=== PATIENT | male | born 1970 | race Caucasian/White ===

== ENCOUNTER → 2019-11-03 | Outpatient (CLI) | payer OTHER ==
--- NOTE | 2019-11-06 10:25 | MR ---
EXAMINATION TYPE: MR knee RT wo con DATE OF EXAM: 11/03/2019 COMPARISON: None HISTORY: right knee pain TECHNIQUE: Multiplanar, multisequence imaging of the right knee is performed without IV contrast. FINDINGS: There is a 1 x 1 x 4.8 cm popliteal fossa cyst small amount of fluid is seen in the suprapa tellar bursa. Fibrillation patellar cartilage. Joint space appears be fairly well preserved with no e rosive changes. Patellar and quadriceps tendons intact. Anterior cruciate, posterior cruciate, medial collateral, lateral collateral ligaments all appear int act. There is grade 3 abnormal signal involving the posterior horn and body of the medial meniscus compati ble with a tear. Lateral meniscus intact. There is grade II chondromalacia involving the articular ernst rface of the medial compartment of the femur. No marrow edema or contusion. No diagnostic evidence of osteonecrosis. IMPRESSION: 1. Posterior horn and body medial meniscal tear. 2. Fibrillation and chondromalacia patellar cartilage 3. 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 4. No evidence of ligamentous tear.
== END | disposition home or self-care (01) ==
LOC: RADMRIMAIN 15:13
PROVIDERS: ATTEND Family Medicine
DX: S83.241A Other tear of medial meniscus, current injury, right knee, initial encounter (principal); M22.41 Chondromalacia patellae, right knee; M94.261 Chondromalacia, right knee; X58.XXXA Exposure to other specified factors, initial encounter

== ENCOUNTER → 2024-10-09 | Outpatient (CLI) | payer BC ==
[2024-10-09 09:54] LABS: Partial Thromboplastin Time 23.8 sec (22.0-30.0)
[2024-10-09 14:57] LABS: HCT 44.6 % (39.6-50.0); MCH 31.2 pg (27.0-32.0); MCHC 33.6 g/dL (32.0-37.0); MCV 92.7 FL (80.0-97.0); Mean Platelet Volume 8.6 FL (9.5-12.2); NRBC Per 100 WBC 0 X 10*3/uL (0.00-0.01); Platelet Count 277 X 10*3/uL (140-440); RBC 4.81 X 10*6/uL (4.40-5.60); RDW 12.5 % (11.5-14.5); WBC 6.57 X 10*3/uL (4.50-10.00)
[2024-10-09 15:02] LABS: BUN/Creat Ratio 27.12 Ratio (12.00-20.00); Blood Urea Nitrogen 21.7 mg/dL (9.0-27.0); Glucose 102 mg/dL (70-110)
[2024-10-09 15:03] LABS: ALT 44 U/L (10-49); AST 26 U/L (14-35); Albumin 4.7 g/dL (3.8-4.9); Albumin/Globulin Ratio 2.24 Ratio (1.60-3.17); Alkaline Phosphatase 71 U/L (41-126); Calcium 9.7 mg/dL (8.7-10.3); Carbon Dioxide 21.9 mmol/L (21.6-31.8); Chloride 105 mmol/L (96-109); Globulin 2.1 g/dL (1.6-3.3); Potassium 4.6 mmol/L (3.5-5.5); Sodium 138 mmol/L (135-145); Total Bilirubin 0.4 mg/dL (0.3-1.2); Total Protein 6.8 g/dL (6.2-8.2)
[2024-10-09 15:06] LABS: Prothrombin Time 10.9 sec (10.0-12.5)
== END | disposition home or self-care (01) ==
LOC: LABPAT 09:10
PROVIDERS: ATTEND Orthopaedic Surgery
DX: Z01.818 Encounter for other preprocedural examination (principal); Z22.322 Carrier or suspected carrier of Methicillin resistant Staphylococcus aureus; M16.12 Unilateral primary osteoarthritis, left hip
CPT/HCPCS: 36415; 80053; 83036; 85027; 85610; 85730; 86850; 86900; 86901; 87070

== ENCOUNTER 2024-10-20 05:37 | Day surgery (SDC) | payer BC, OTHER ==
[2024-10-18 13:09] VITALS: BMI 37.1
[2024-10-20] MEDS ORDERED: TRANEXAMIC 1,000 MG/100ML-NACL 1,000 MG in SALINE 1 100ML.BAG IV PRN (06:00)
[2024-10-20] MEDS ORDERED: TRANEXAMIC 1,000 MG/100ML-NACL 1,000 MG in SALINE 1 100ML.BAG IVPB PRN (06:00)
[2024-10-20] MEDS: ACETAMINOPHEN TAB 500 MG TAB PO PRN (06:32)
[2024-10-20] MEDS: oxyCODONE ER 10 MG TAB.ER.12H PO PRN (06:32)
[2024-10-20] MEDS: DOCUSATE 100 MG CAP PO PRN (06:32)
[2024-10-20] MEDS: ONDANSETRON 4 MG/2 ML VIAL IVP PRN (06:36)
[2024-10-20] MEDS: DEXAMETHASONE SOD PHOSPHATE 10 MG/ML 1 ML VIAL IV PRN (06:37)
[2024-10-20] MEDS: FAMOTIDINE 20 MG/2 ML VIAL IVP PRN (06:37)
[2024-10-20] MEDS: KETOROLAC 15 MG/ML 1 ML VIAL IVP PRN (06:37)
[2024-10-20] MEDS: fentaNYL (PF) 50 MCG/ML 2 ML AMP IVP PRN (06:47)
[2024-10-20] MEDS: MIDAZOLAM 2 MG/2 ML VIAL IV ONE (06:47)
[2024-10-20] MEDS ORDERED: PROPOFOL 10 MG/ML 20 ML VIAL IV ONE (06:54)
[2024-10-20] MEDS ORDERED: GLYCOPYRROLATE 0.2 MG/ML 2 ML VIAL ONE (06:54)
[2024-10-20] MEDS ORDERED: DEXAMETHASONE SOD PHOSPHATE 4 MG/ML 1 ML VIAL ONE (06:54)
[2024-10-20] MEDS ORDERED: HYDROmorphone (PF) 1 MG/ML ONE (06:54)
[2024-10-20] MEDS ORDERED: NEOSTIGMINE 1 MG/ML 10 ML VIAL ONE (06:54)
[2024-10-20] MEDS ORDERED: ROCURONIUM 10 MG/ML (5 ML VIAL) IV ONE (06:54)
[2024-10-20] MEDS ORDERED: SUCCINYLCHOLINE CHLORIDE 200 MG/10 ML VIAL IV ONE (06:54)
[2024-10-20] MEDS ORDERED: ROPIVACAINE 5 MG/ML 30 ML VIAL ONE (06:54)
[2024-10-20] MEDS ORDERED: TRANEXAMIC 1,000 MG/100ML-NACL PREMIX BAG ONE (06:54)
[2024-10-20] MEDS ORDERED: fentaNYL (PF) 50 MCG/ML 2 ML AMP ONE (06:54)
[2024-10-20] MEDS ORDERED: LIDOCAINE 1% INJ 10MG/ML (20 ML MDV) ONE (06:54)
[2024-10-20] MEDS: IV FLUID CONTINUATION 1,000 ML IV ONE (06:55)
--- NOTE | 2024-10-20 07:26 | P.ANPRN ---
Procedure Note - Anesthesia - Nerve Block Performed Left Morteza Single Time Out Performed: Yes Date of Procedure: 10/20/24 Procedure Start Time: 06:47 Procedure Stop Time: 06:53 Location of Patient: PreOp Indication: Acute Post-Operative Pain, Requested by Surgeon Sedation Type: Sedate with meaningful contact maintained Preparation: Sterile Prep Position: Supine Needle Types: Pajunk Needle Gauge: 21 Ultrasound used to visualize needle placement: Yes Ultrasound used to observe medication spread: Yes Injectate: 0.5% Ropivacaine (see comment for volume) (30 ml + 4 mg Dexamethas one) Blood Aspirated: No Pain Paresthesia on Injection Noted: No Resistance on Injection: Normal Image Stored and Saved: Yes Events: Uneventful and Well Tolerated
[2024-10-20] MEDS: ROPIVACAINE/EPI/CLONIDINE/KET 50 ML SYRINGE MISCELLANE PRN (07:28)
--- NOTE | 2024-10-20 08:42 | P.OP ---
Date of Procedure: 10/20/24 Preoperative Diagnosis: Left hip osteoarthritis Postoperative Diagnosis: Same Procedure(s) Performed: Left direct anterior total hip arthroplasty Implants: 1. Eric Trident II Acetabular Cup, Size #56 2. [place] Insignia Size #5 Femoral Stem, High Offset 3. Biolox delta femoral head, 36 mm, - 2.5 mm neck Anesthesia: GETA, regional Surgeon: Ramses Arriaga Medical Technician #1: Al Garza Estimated Blood Loss (ml): 300 IV fluids (ml): 800 Pathology: none sent Condition: stable Disposition: PACU Indications for Procedure: The patient is a very pleasant 54 year old male who has a long history of left hip and groin pain. His presenting complaints and physical exam was consistent with hip arthritis. His xrays showed arthritic changes. He was initially managed non-surgically, but had continued pain. We discussed an image guided injection versus a total hip replacement and the patient and his requested proceeding with surgery. I had a long discussion with the patient in the office on the potential risks and complications of an elective total hip replacement through a direct anterior approach. Risks discussed include, but are certainly not limited to, risks from anesthesia, superficial infection requiring local wound care or antibiotics, deep hill-prosthetic joint infection and the treatment required to eradicate infection, intraoperative fracture, postoperative periprosthetic fracture, damage to local blood vessels or nerves particularly the lateral femoral cutaneous nerve, delayed wound healing requiring local wound care or possibly surgical debridement, hip dislocation, leg length discrepancy, soft tissue irritation around the total hip implant such as iliopsoas tendinitis or trochanteric bursitis, wear and osteolysis from the implants, squeaking or audible noises, groin pain, thigh pain, heterotopic ossification, stiffness, aseptic loosening of the implants, dissatisfaction with surgical outcome, need for revision surgery, DVT, PE, swelling of the operative extremity, acute coronary event, stroke, failure to thrive, and possibly loss of life or limb. The patient understands that while these are the most common complications after an elective hip replacement there are certainly other less common complications possible. They were given ample time to ask questions regarding the potential complications of a hip replacement. Following our discussion the patient provided their verbal and written consent to go forward with an elective total hip replacement. Operative Findings: Full thickness cartilage loss on the femoral head superiorly and diffuse arthritic changes and cartilage loss in the acetabulum. Description of Procedure: The patient was identified in the preoperative holding area and the correct hip was marked with my initials. I reviewed the procedure and consent with the patient. All of their questions were answered. The patient was then brought back into the operating room by anesthesia. While on the [facility] anesthesia was administered by the anesthesia team. Preoperative antibiotics and tranexamic acid were also given. After the patient was under anesthesia I examined their ankles to determine their preoperative leg length discrepancy. The skin over the anterior aspect of the hip was shaved to remove hair over the site of planned incision. Both feet and ankles were padded with webril and boots for the Bosque were applied. The patient was then carefully transferred onto the [place] table. A perineal post was immediately placed. The arms were placed on arm holders and were well-padded. Both boots were secured to the spars on the Bosque table. The patient was positioned so that the pelvis was centered over the post. Nonsterile drapes were applied. A timeout was performed identifying the correct patient, operative extremity, and procedure. At this point fluoroscopy was brought in to take preoperative images of the pelvis and operative hip. Using the standing AP pelvis from the office as a template, a comparable image was obtained with fluoroscopy. A metallic bar was used to create a bi-ischial line for use as a reference to leg length adjustments during the procedure. Global offset was also measured on both the operative and nonoperative leg. Fluoroscopy was then brought out and a pre-scrub using a chlorhexidine scrub brush was performed. The operative limb was then prepped and draped in the standard sterile fashion. An anterior longitudinal incision was made lateral and distal to the ASIS. The skin and subcutaneous tissues were incised sharply. The underlying tensor fascia was identified and incised in its midportion. The fascia was dissected free from the underlying muscle and the muscle belly was retracted. A blunt tipped cobra retractor was placed over the superior neck under the muscle fibers of the gluteus minimus. The deep enveloping fascia of the tensor was incised. The anterior leash of vessels were then identified and cauterized. The fascia between the rectus and the capsule was then incised and the pre-capsular fat was excised. A second Cobra was placed inferior to the neck. The interval between the rectus and iliocapsularis and the hip capsule was developed and a retractor was placed carefully over the anterior rim of the acetabulum. A T-shaped anterior capsulotomy was performed. The superior capsular leaflet was left in place in the inferior capsular flap was excised. The Cobra retractors were placed intracapsularly. We then made a femoral neck osteotomy according to preoperative and intraoperative templating and confirmed the level of the osteotomy using fluoroscopic imaging. The femoral head was removed, passed off to the back table, and sized. The superior capsular flap was excised. Re tractors were placed circumferentially exposing the acetabulum. We then circumferentially debrided the acetabulum free of labrum and osteophytes. The pulvinar was removed to fully visualize the cotyloid fossa. We then sequentially reamed to achieve peripheral fit and excellent bleeding subchondral bone. The socket was thoroughly irrigated. The acetabular component was impacted into the appropriate position using fluoroscopy to guide version, inclination, and depth of insertion taking care to have a comparable image of the AP pelvis to the standing image taken in the office. An excellent press-fit was achieved and final position was confirmed using fluoroscopy. The press fit was augmented with a bony cancellus dome screw. The liner was then impacted into the socket. Attention was then turned to the femur. The remnant dorsal lateral capsule was excised. The short external rotators were visible and protected. A bone hook was used to confirm appropriate translation of the trochanter away from the acetabulum. The leg was then extended and adducted and the bone hook was used to elevate the femur for broaching. A box osteotome and blunt tipped canal sound was then utilized to gain access to the femoral canal. We then sequentially broached the femur in appropriate anteversion until excellent torsional stability was achieved. The neck cut was brought flush to the trial b felix with a calcar planar. A trial neck and head were then placed onto the broach and the hip was atraumatically reduced under direct visualization. External rotation to 90 was performed to assess stability. Fluoroscopy was brought in. An AP and lateral fluoroscopic image of the proximal femur was obtained to assess position and fill of the trial broach. An AP of the pelvis was then obtained and matched to the preoperative image taken. A bi-ischial bar was then placed and measurements were taken to assess changes in length and offset. The hip was then carefully dislocated, the proximal femur was exposed, and the trial implants were removed. The wound and proximal femur was thoroughly irrigated using sterile saline and pulsatile lavage. The final femoral implant was dispensed and gently tapped into place generating an excellent press-fit. The trunnion was cleansed and the final head was tapped into place to engage the Avendaño taper. The acetabulum was irrigated and visualized to be free of debris. The hip was carefully reduced. Stability was checked clinically with external rotation to 90 and there was no evidence of instability. Final fluoroscopic images were taken. The wound was then thoroughly irrigated and soaked with a dilute Betadine rinse for 3 minutes. 3 L of sterile saline was irrigated through the wound using pulsatile lavage. Local anesthetic cocktail was injected into the soft tissues around the surgical field. The wound was then closed in layers. A sterile dressing was placed over the surgical incision. The drapes were taken down and the patient was carefully transferred off of the Bosque table. Following removal of the boots the leg lengths felt acceptable. The patient was then taken to recovery room having tolerated the procedure well. Al Lucero was required as a skilled assistant manager retail due to the complexity of surgery for patient positioning, draping, exposure, retraction, closure of wound, and application of dressing. PLAN: The patient can weight-bear as tolerated on the operative extremity. 2 doses of postoperative antibiotics. DVT prophylaxis with aspirin 81 mg twice a day based on preoperative risk stratification. Physical therapy for gait training.
[2024-10-20] MEDS ORDERED: ONDANSETRON 4 MG/2 ML VIAL IVP PRN (09:01)
[2024-10-20] MEDS ORDERED: ACETAMINOPHEN TAB 325 MG TAB PO PRN (09:01)
[2024-10-20] MEDS ORDERED: HYDROcodone/APAP 5-325MG 1 EACH TAB PO PRN (09:01)
[2024-10-20] MEDS ORDERED: hydrOXYzine pamoate 25 MG CAP PO PRN (09:01)
[2024-10-20] MEDS ORDERED: MAGNESIUM HYDROXIDE 2,400 MG/30 ML CUP PO PRN (09:01)
[2024-10-20] MEDS ORDERED: NALOXONE 0.4 MG/ML 1 ML VIAL IV PRN (09:01)
[2024-10-20] MEDS ORDERED: HYDROmorphone 0.5 MG/0.5 ML SYRINGE IVP PRN (09:01)
[2024-10-20] MEDS ORDERED: ONDANSETRON 4 MG TAB PO PRN (09:05)
--- NOTE | 2024-10-20 09:20 | FL ---
EXAMINATION TYPE: FL guidance operating room, XR Hip Limited LT DATE OF EXAM: 10/20/2024 8:41 AM COMPARISON: Pre Operative Images if available both CT/MRI or plain film CLINICAL INDICATION: Male, 54 years old with history of Left Hip-Ant; TECHNIQUE: FL guidance operating room, XR Hip Limited LT, multiple fluoroscopic images provided for p rocedure. Total fluoroscopy time: 26 seconds Total submitted images to PACS: 7 DAP: 2.8762 mGym2 Gycm2 uGym2 cGycm2 or equivalent. FINDINGS: Fluoroscopic images during internal fixation/arthroplasty demonstrate hardware in appropriate positio n. Hardware appears intact. No immediate complication identified. IMPRESSION: 1. No evidence for intraoperative complication. 2. Please see the operative/procedural note for further details. [facility], , 10/20/2024 9:17 AM
[2024-10-20] MEDS: HYDROmorphone 0.5 MG/0.5 ML SYRINGE IVP PRN (09:29)
[2024-10-20] MEDS: HYDROcodone/APAP 10-325MG 1 EACH TAB PO PRN (12:04)
[2024-10-20] MEDS: LACTATED RINGERS 1,000 ML IV SCH (12:53)
[2024-10-20] MEDS: SODIUM CHLORIDE 0.9% 1,000 ML IV SCH (12:54)
[2024-10-20] MEDS: HYDROmorphone 1 MG/ML 1 ML SYRINGE IVP PRN (15:48)
--- NOTE | 2024-10-20 16:30 | P.CONS ---
History of Present Illness - Reason for Consult Consult date: 10/20/24 - History of Present Illness Patient is a 54-year-old male with a past medical history of hypertension, hyperlipidemia, osteoarthritis, and sleep apnea for whom we are consulted for medical management. He underwent elective left total hip arthroplasty 10/20/2024 for osteoarthritis. Patient is now postop with no known surgical complications. Patient is sitting up in bed resting with no complaints of pain. Patient denies fever, chills, chest pain, palpitations, diaphoresis, dyspnea, cough, nausea, vomiting, constipation, diarrhea, abdominal pain, weakness, myalgia, dizziness, headache, and dysuria. Review of systems: Pertinent positives and negatives as discussed in HPI, a complete review of systems was performed and all other systems are negative. Social history: Tobacco: None reported Alcohol: None reported Recreational drugs: None reported Travel: None reported Sick contacts: None reported Physical examination: Vital signs reviewed General: Nontoxic, no distress, appears stated age, well-appearing Derm: Warm, dry, intact Head: Atraumatic, normocephalic, symmetric Eyes: EOMI, anicteric sclera Mouth: No lip lesion, mucus membranes moist Cardiovascular: S1-S2 regular, no murmur Lungs: CTA bilateral, no rhonchi, no rales, no accessory muscle use Abdominal: Soft, non-tender to palpation Extremities: No cyanosis, clubbing, or pedal edema. Left anterior hip with dry, intact dressing. Minimal edema to the site. Neuro: Alert, oriented x 3, gross neurological examination did not reveal any focal deficits. Cranial nerves II to XII grossly intact. Psych: Appropriate affect and mood Assessment and Plan: Patient is a 54-year-old male with past medical history of hypertension, hyperlipidemia, osteoarthritis, and sleep apnea for whom we are consulted for medical management status post left hip total arthroplasty. Active #. Hypertension Lisinopril 10 mg PO at bedtime #. Hyperlipidemia Atorvastatin 10 mg PO at bedtime #. Sleep apnea Use of CPAP at night Respiratory consulted #Osteoarthritis #. Left total hip arthroplasty, postop day 0 Pain management and DVT prophylaxis per primary surgical team F: None required E: Replete as needed N: Regular diet A: Ambulation as tolerated CODE STATUS: Full code Patient is stable from medical stand point Follow up CBC and BMP in AM Thank you for allowing us to participate in the care of this pleasant patient. Do not hesitate to contact us with questions. Someone can be reached from the [facility] hospitalist group all hours of the day at [phone] or via perfect serve. I have seen and evaluated the patient today. Discussed with the resident and agree with the residents finding and plan as documented in the resident's note. Changes highlighted in blue font. Past Medical History Past Medical History: Hearing Disorder / Deafness, Hyperlipidemia, Hypertension, Osteoarthritis (OA), Sleep Apnea/CPAP/BIPAP Additional Past Medical History / Comment(s): Hard of hearing. Hx Migraine X2. CPAP use. History of Any Multi-Drug Resistant Organisms: None Reported Past Surgical History: Cholecystectomy, Hernia Repair Additional Past Surgical History / Comment(s): Sinus surgery. Past Anesthesia/Blood Transfusion Reactions: No Reported Reaction Smoking Status: Never smoker - Past Family History Mother Family Medical History: No Reported History Medications and Allergies Home Medications Medication Instructions Recorded Confirmed Type Atorvastatin [Lipitor] 10 mg PO HS 10/18/24 10/18/24 History Celecoxib [CeleBREX] 100 mg PO BID 10/18/24 10/18/24 History Ergocalciferol [Vitamin D2 (1250 1,250 mcg PO WEEKLY 10/18/24 10/18/24 History Mcg = 63909 Iu)] Methocarbamol (Unknown Dose) 1 tab PO DIRECTED PRN 10/18/24 10/18/24 History Mupirocin 2% Oint [Bactroban 2% 1 applic NASAL BID 10/18/24 10/18/24 History Oint] lisinopriL [Zestril] 10 mg PO HS 10/18/24 10/18/24 History traMADol HCL 50 mg PO QID 10/18/24 10/18/24 History Aspirin 81 mg PO BID #60 tab 10/20/24 Rx Diclofenac Sodium [Voltaren] 75 mg PO BID #60 tab 10/20/24 Rx Omeprazole 20 mg PO DAILY #30 tab 10/20/24 Rx Ondansetron [Zofran] 4 mg PO Q6HR PRN #30 tab 10/20/24 Rx Sennosides-Docusate Sodium 1 tab PO BID PRN #60 tablet 10/20/24 Rx [Senokot-S] Allergies Allergy/AdvReac Type Severity Reaction Status Date / Time No Known Allergies Allergy Verified 10/20/24 05:59 Physical Exam Vitals: Vital Signs Temp Pulse Pulse Resp BP BP Pulse Ox 10/20/24 14:07 66 118/80 92 L 10/20/24 14:06 60 116/70 92 L 10/20/24 14:05 61 118/67 93 L 10/20/24 11:05 97.7 F 73 116/66 93 L 10/20/24 10:48 63 16 129/68 99 10/20/24 10:33 71 16 126/77 100 10/20/24 10:19 71 16 130/76 99 10/20/24 10:03 62 16 121/56 98 10/20/24 09:48 71 16 105/52 10/20/24 09:33 57 L 16 113/55 100 10/20/24 09:18 65 16 118/53 100 10/20/24 09:03 57 L 16 111/53 100 10/20/24 08:48 97.4 F L 67 16 144/67 93 L 10/20/24 06:50 65 16 145/76 98 10/20/24 06:03 97.3 F L 60 16 143/80 95 Intake and Output 10/19/24 10/20/24 10/20/24 22:59 06:59 14:59 Intake Total 400 350 Output Total 300 Balance 400 50 Intake: IV 400 350 Output: Estimated Blood Loss 300 Other: Weight 106 kg
[2024-10-20] MEDS ORDERED: SALINE NASAL GEL 14.1 GM TUBE NASAL PRN (19:22)
[2024-10-20] MEDS: ASPIRIN 81 MG PO SCH (20:08)
[2024-10-20] MEDS: SENNOSIDES-DOCUSATE SODIUM 1 EACH TAB PO SCH (20:08)
[2024-10-20] MEDS: ATORVASTATIN 10 MG TAB PO SCH (20:46)
[2024-10-20] MEDS: lisinopriL 10 MG TAB PO SCH (20:46)
[2024-10-21 08:02] VITALS: BP 130/75; PULSE 71; RESP 18; TEMP 97.8
[2024-10-21] MEDS: FAMOTIDINE 20 MG TAB PO SCH (08:12)
--- NOTE | 2024-10-21 08:16 | P.DS ---
Providers Date of admission: 10/20/2024 Attending physician: Ramses Arriaga Consults: 10/20/24 09:01 Consult Physician Routine Consulting Provider: Denis Soto Consult Reason/Comments: Postop left total hip arthroplasty medical management Do you want consulting provider notified?: Yes Primary care physician: [facility] Hospital Course: the patient is a very pleasant 54-year-old male who underwent uncomplicated total hip replacement yesterday. Following surgery he was transferred to the orthopedic floor. He received 2 doses of postoperative antibiotics. He was transitioned from IV to oral pain medications. I saw the patient on postoperative day #1 and he was doing well although both the patient and his nurse states he may have overdone it with walking in the halls yesterday. This morning he is complaining of soreness in the left thigh. His dressing is intact with a small dime-sized area of strikethrough but otherwise intact. Femoral nerve function is intact. He is able to actively plantarflex and dorsiflex his ankle and his toes. He worked with physical therapy and did well. He was ultimately cleared for discharge home. Plan - Discharge Summary Discharge Rx Participant: No New Discharge Prescriptions: New Aspirin 81 mg PO BID #60 tab Omeprazole 20 mg PO DAILY #30 tab Sennosides-Docusate Sodium [Senokot-S] 1 tab PO BID PRN #60 tablet PRN Reason: Constipation Diclofenac Sodium [Voltaren] 75 mg PO BID #60 tab Ondansetron [Zofran] 4 mg PO Q6HR PRN #30 tab PRN Reason: Nausea No Action traMADol HCL 50 mg PO QID Ergocalciferol [Vitamin D2 (1250 Mcg = 69932 Iu)] 1,250 mcg PO WEEKLY Celecoxib [CeleBREX] 100 mg PO BID Mupirocin 2% Oint [Bactroban 2% Oint] 1 applic NASAL BID Methocarbamol (Unknown Dose) 1 tab PO DIRECTED PRN PRN Reason: Pain lisinopriL [Zestril] 10 mg PO HS Atorvastatin [Lipitor] 10 mg PO HS Discharge Medication List Atorvastatin [Lipitor] 10 mg PO HS 10/18/24 [History] Celecoxib [CeleBREX] 100 mg PO BID 10/18/24 [History] Ergocalciferol [Vitamin D2 (1250 Mcg = 07578 Iu)] 1,250 mcg PO WEEKLY 10/18/24 [History] Methocarbamol (Unknown Dose) 1 tab PO DIRECTED PRN 10/18/24 [History] Mupirocin 2% Oint [Bactroban 2% Oint] 1 applic NASAL BID 10/18/24 [History] lisinopriL [Zestril] 10 mg PO HS 10/18/24 [History] traMADol HCL 50 mg PO QID 10/18/24 [History] Aspirin 81 mg PO BID #60 tab 10/20/24 [Rx] Diclofenac Sodium [Voltaren] 75 mg PO BID #60 tab 10/20/24 [Rx] Omeprazole 20 mg PO DAILY #30 tab 10/20/24 [Rx] Ondansetron [Zofran] 4 mg PO Q6HR PRN #30 tab 10/20/24 [Rx] Sennosides-Docusate Sodium [Senokot-S] 1 tab PO BID PRN #60 tablet 10/20/24 [Rx] Follow up Appointment(s)/Referral(s): Ramses Arriaga MD [Medical Doctor] - 2 Weeks Activity/Diet/Wound Care/Special Instructions: Patient is wanting to go to [facility] in [place]. Will need a script prior to discharge. 1. Weight-bear as tolerated on your operative extremity unless instructed otherwise. Use a walker or other assistive device to ambulate. 2. Leave surgical dressing in place. If your dressing becomes saturated with blood, there is drainage, or the dressing becomes loose please contact the office. 3. It is okay to shower with your surgical dressing, but do not submerge in water (no hot tubs, bath's, swimming etc.) 4. Take your blood clot prevention medication as prescribed (aspirin, Eliquis, Xarelto, and Plavix are commonly prescribed medications for blood clot prevention) 5. While taking [place] or Percocet for pain take a stool softener (Ex: Colace) and drink lots of water. 6. Keep all follow-up appointments as scheduled. You will usually be seen in 1-2 weeks following surgery. 7. Please contact the office with any questions or concerns [phone] Discharge Disposition: HOME WITH HOME HEALTH SERVICES
[2024-10-21 10:56] LABS: Basophils # (A) 0.01 X 10*3/uL (0.00-0.10); Basophils % (A) 0.1 %; Eosinophils # (A) 0.01 X 10*3/uL (0.04-0.35); Eosinophils % (A) 0.1 %; HCT 33.7 % (39.6-50.0); HGB 11.3 g/dL (13.0-17.0); Lymphocytes # (A) 1.32 X 10*3/uL (0.90-5.00); Lymphocytes % (A) 8.5 %; MCHC 33.5 g/dL (32.0-37.0); MCV 95.5 FL (80.0-97.0); Mean Platelet Volume 9.1 FL (9.5-12.2); Monocytes % (A) 8.3 %; NRBC Per 100 WBC 0 X 10*3/uL (0.00-0.01); Neutrophils # (A) 12.85 X 10*3/uL (1.80-7.70); Neutrophils % (A) 82.5 %; Platelet Count 239 X 10*3/uL (140-440); RBC 3.53 X 10*6/uL (4.40-5.60); RDW 12.7 % (11.5-14.5); WBC 15.57 X 10*3/uL (4.50-10.00)
--- NOTE | 2024-10-21 11:16 | P.PN ---
Subjective Progress Note Date: 10/21/24 Patient is a 54-year-old male with a past medical history of hypertension, hyperlipidemia, osteoarthritis, and sleep apnea for whom we are consulted for medical management. He underwent elective left total hip arthroplasty 10/20/2024 for osteoarthritis. Patient is now postop with no known surgical complications. Patient is sitting up in bed resting with no complaints of pain. Patient denies fever, chills, chest pain, palpitations, diaphoresis, dyspnea, cough, nausea, vomiting, constipation, diarrhea, abdominal pain, weakness, myalgia, dizziness, headache, and dysuria. 10/21. Patient seen and examined lying comfortably in bed. No acute events overnight. No significant complaints today. Denies fever, chills, nausea/vomiting, chest pain, abdominal pain, dyspnea. Labs today: WBC 15.57, hemoglobin 11.3, platelets 239. Sodium 136, creatinine 0.8 Pertinent positives and negatives discussed above, a complete review of systems was performed and all the other systems were negative. Physical examination: Vital signs reviewed General: Nontoxic, no distress, appears stated age, well-appearing Derm: Warm, dry, intact Head: Atraumatic, normocephalic, symmetric Eyes: EOMI, anicteric sclera Mouth: No lip lesion, mucus membranes moist Cardiovascular: S1-S2 regular, no murmur Lungs: CTA bilateral, no rhonchi, no rales, no accessory muscle use Abdominal: Soft, non-tender to palpation Extremities: No cyanosis, clubbing, or pedal edema. Left anterior hip with dry, intact dressing. Minimal edema to the site. Neuro: Alert, oriented x 3, gross neurological examination did not reveal any focal deficits. Cranial nerves II to XII grossly intact. Psych: Appropriate affect and mood Assessment and Plan: Patient is a 54-year-old male with past medical history of hypertension, hyperlipidemia, osteoarthritis, and sleep apnea for whom we are consulted for medical management status post left hip total arthroplasty. Active #. Hypertension Lisinopril 10 mg PO at bedtime #. Hyperlipidemia Atorvastatin 10 mg PO at bedtime #. Sleep apnea Use of CPAP at night Respiratory consulted #Osteoarthritis #. Left total hip arthroplasty, postop day 1 #Leukocytosis, anticipated outcome of surgery #Mild acute blood loss anemia, anticipated outcome of surgery Pain management and DVT prophylaxis per primary surgical team F: None required E: Replete as needed N: Regular diet A: Ambulation as tolerated Code status: Full code Patient is medically optimized for discharge. Thank you for allowing us to participate in the care of this pleasant patient. Do not hesitate to contact us with questions. Someone can be reached from the [facility] hospitalist group all hours of the day at [phone] or via perfect serve. I have seen and evaluated the patient today. Discussed with the resident and a gree with the residents finding and plan as documented in the resident's note. Changes highlighted in blue font. Objective - Vital Signs Vital signs: Vital Signs Temp 98.2 F 10/21/24 01:10 Pulse 69 10/21/24 01:10 Resp 20 10/21/24 01:10 BP 107/62 10/21/24 01:10 Pulse Ox 96 10/21/24 01:10 FiO2 Intake & Output 10/20/24 10/20/24 10/21/24 06:59 18:59 06:59 Intake Total 288 650 6616 Output Total 300 Balance 105 19 6440 Weight 106 kg 106 kg Intake: IV 400 350 Oral 1080 Output: Estimated Blood Loss 300 Other: Voiding Method Toilet # Voids 1 4 - Labs CBC & Chem 7: 10/21/24 03:48 10/21/24 03:48
[2024-10-21 12:22] LABS: BUN/Creat Ratio 33.62 Ratio (12.00-20.00); Blood Urea Nitrogen 26.9 mg/dL (9.0-27.0); Calcium 8.8 mg/dL (8.7-10.3); Carbon Dioxide 21.2 mmol/L (21.6-31.8); Chloride 103 mmol/L (96-109); Glucose 114 mg/dL (70-110); Potassium 4.6 mmol/L (3.5-5.5); Sodium 136 mmol/L (135-145)
== END 2024-10-21 10:33 | disposition home health service (06) ==
LOC: OR 05:37 → 4SSUR 11:06 → OR 10-21 10:33
PROVIDERS: ATTEND Orthopaedic Surgery
DX: M16.12 Unilateral primary osteoarthritis, left hip (principal)
CPT/HCPCS: 97161; 64999; 80048; 85025; 73501; 27130; C1776; J2250; J1100; J0690 ×2; J2405; J3010; J3490; J1171 ×2; J1885